=== PATIENT | female | born 1955 | race Caucasian/White ===

== ENCOUNTER 2016-05-30 05:36 | Inpatient (IN) | payer OTHER ==
--- NOTE | ~2016-05-30 | CN ---
Consultation Report [facility] [address] [place]. [address] NAME: SHANT PRUETT : 57 STATUS : ADM Jennifer PAT#: [id number] AGE: 60 ADM/REG DATE : 05/30/16 MR#: [id number] REPORT SERV DATE: 05/31/16 DICTATED BY: LEANDRA NUÑEZ DATE: 05/31/16 REPORT STATUS : Draft TRANSCRIBED BY: MODVenkatesh DATE: 05/31/16 NEUROLOGY CONSULTATION DATE OF CONSULTATION: 05/31/2016 REASON FOR CONSULTATION: Reported right hemiparesis and dysarthria. HOSPITALIST: Gold Armstrong Jr, MD. HISTORY OF PRESENT ILLNESS: The patient is a 60-year-old female, who states that four or five days ago, she had a sudden onset of right hemiparesis with dysarthria. She does not remember the situation and she does not remember exactly how her symptoms began, but she remembers feeling numbness, pain, and weakness on the entire right side of her body. She feels like, she was just "cut in half". She has never experienced these type of symptoms before. Along with the numbness, pain, and weakness, she has had imbalance. She finds it difficult to walk. She also has had some slurred speech. She denies any aphasia, visual changes, or bowel and bladder abnormalities. The patient also denies having any recent upper respiratory infection or urinary tract infection. The patient was hoping that her symptoms would resolve, but since they did not she decided to come to the emergency department for further evaluation and treatment. PAST MEDICAL HISTORY: Bipolar disorder with anxiety and depression, fibromyalgia, chronic Crohn's disease, left eye vitrectomy and lens implantation, rheumatoid arthritis, esophageal stricture, colonic polyps, MRSA, cystitis, obstructive sleep apnea (does not wear CPAP), esophagitis, gastroparesis, uveitis, peptic ulcer disease, and cigarette abuse, restless legs syndrome. PAST SURGICAL HISTORY: Small bowel resection, partial colectomy, C-spine surgery, sinus surgery, and cholecystectomy. HOME MEDICATIONS: Consists of Requip 4 mg at bedtime, Risperdal 3 mg at bedtime, Lamictal 200 mg at bedtime, Pepcid 20 mg at bedtime, Protonix 40 mg daily, Neurontin 400 mg four times a day, Mycostatin cream applied b.i.d., [place] 10/325 mg one tablet four times a day p.r.n., Xanax 1 mg four times a day p.r.n., Florinef 0.1 mg b.i.d., and I think she is on Remicade. ALLERGIES: DROPERIDOL, MORPHINE, SOLU-MEDROL, PHENERGAN, AND DEMEROL. SOCIAL HISTORY: The patient is never . She has no children. She lives with her sister on [facility]. She works for [employer]. She smokes one pack per day. Denies use of alcohol or illicits. FAMILY HISTORY: Her mother from complications of diabetes. Her father from lung Consultation Report [address] [place]. [address] NAME: SHANT PRUETT : 57 STATUS : ADM Jennifer PAT#: [id number] AGE: 60 ADM/REG DATE : 05/30/16 MR#: [id number] REPORT SERV DATE: 05/31/16 DICTATED BY: LEANDRA NUÑEZ DATE: 05/31/16 REPORT STATUS : Draft TRANSCRIBED BY: SHANAE DATE: 05/31/16 cancer. She has one sister who has rheumatoid arthritis. REVIEW OF SYSTEMS: For pertinent positives, please refer to HPI. PHYSICAL EXAMINATION: GENERAL: The patient is a 60-year-old female, who is afebrile. VITAL SIGNS: Heart rate 86, respiratory rate 15, O2 sats on room air is 96%, blood pressure 140/68. NEURO: The patient is alert. She is oriented x4. She appears to be in moderate discomfort, is tearful, will follow two and three step commands. No obvious cranial nerve deficits. Right eye is injected. There is some matting and tearing from that eye. EOMs are intact. Pupils are 3 mm. PERRLA. Vision via confrontation full in both carpenter. Visual acuity, unable to measure in the right eye due to "blurring". Can move all extremities x4. No ataxia with [id number] or [id number]. Pronator drift on the right. Upper extremity strength is 5/5 in the left and 4/5 on the right with give-way weakness. Upper DTRs 1+ bilaterally. Reported diminished sensation on the right side compared to the left on the face, the upper extremities, and lower extremities. Lower extremities, strength is 5/5 on the left and 4/5 on the right with give-way weakness and positive Borjas sign. DTRs are 2+ bilaterally in the lower extremities. Plantar reflexes silent. The patient can get up out of the bed. Gait is very slow. No spasticity noted. No imbalance. Unable to tandem. Romberg is negative. LABORATORY DATA: CBC is normal. BMP shows a potassium of 3.6, glucose 166, sedimentation rate 28, C-reactive protein, 9.6, procalcitonin is negative. TSH 1.98. Chest x-ray, no acute changes. CT of the brain, no acute changes. Positive demyelinating process. MRI of the brain, no acute changes. There is either ischemia versus demyelinating disease. ASSESSMENT/PLAN: 1. Right-sided hemiparesis, etiology unknown. At this point to rule out demyelinating disease, the patient will undergo an MRI of the brain and C-spine with gadolinium. If this looks suspicious for a demyelinating process, the patient may go for a lumbar puncture looking for oligoclonal banding. At this point, there is no evidence for acute stroke. There is a possibility of drug-seeking behavior since the patient does have give-way weakness and is asking for stronger pain medications at the end of the examination. 2. Crohn's disease. 3. Rheumatoid arthritis. 4. Bipolar illness. 5. Dysautonomia versus side effect of a typical antipsychotics. Thank you again for including us in consultation. We will continue to follow with you. Consultation Report [address] [place]. [address] NAME: SHANT PRUETT : 57 STATUS : ADM Jennifer PAT#: [id number] AGE: 60 ADM/REG DATE : 05/30/16 MR#: [id number] REPORT SERV DATE: 05/31/16 DICTATED BY: LEANDRA NUÑEZ DATE: 05/31/16 REPORT STATUS : Draft TRANSCRIBED BY: SHANAE DATE: 05/31/16 JULIANNE/SHANAE PARIS Olsen / [id number] CC: Gold Armstrong Jr, MD William Cornwell, M.D.
--- NOTE | ~2016-05-30 | DS ---
Discharge Summary [facility] [address] [facility] [address] [place]. [address] NAME: SHANT VAUGHAN : 57 STATUS : DIS IN PAT#: [id number] AGE: 60 ADM/REG DATE : 05/30/16 MR#: [id number] REPORT SERV DATE: 06/04/16 DICTATED BY: DAMIÁN HANLEY DATE: 06/03/16 REPORT STATUS : Draft TRANSCRIBED BY: MODL DATE: 06/03/16 ADMISSION DATE: 05/30/2016 DISCHARGE DATE: 06/03/2016 REASON FOR ADMISSION: Hypotension, orthostasis. HISTORY OF PRESENT ILLNESS: Please refer Dr. Lauri Henderson's history and physical dated 05/30/2016 for complete details regarding the patient's admission. In brief, the patient was admitted to the Hospitalist Service for postural hypotension. HOSPITAL COURSE: Several issues were addressed: 1. Syncope secondary to orthostasis and hypotension. The patient was admitted to the hospitalist service, where she was admitted with IV fluids. She had a significant drop in her blood pressure during orthostatics. Cortisol level was checked and was 0.7. She was then started on Florinef and did not have any other issues. [facility] was following for her syncope, recommended getting an echocardiogram, which was performed and it was unremarkable. 2. Right eye conjunctivitis. The patient was started on gentamicin and had significant injected conjunctivae. She stated that the gentamicin is making it worse. I discontinued the gentamicin and started her on Cyclogyl and Vigamox q.i.d., and had markedly improved her conjunctivitis, it is now resolving. 3. Bipolar, stable. 4. Generalized anxiety disorder, stable on 0.5 mg p.r.n. Xanax. Of note, her dose was decreased from 2 mg to 0.5, and she has been doing fine on 0.5 in the hospital. 5. Chronic pain syndrome, which was stable on [place]. 6. Right-sided hemiparesis. Neurology was consulted. They had recommended getting an MRI of her brain and MRI of her C-spine. MRI of the brain showed focal regions of gliosis in the white matter of both hemispheres primarily in the periventricular location may be related to chronic ischemic changes; however, the differential would include demyelinating disease. No acute infarct or hemorrhage. MRI with and without contrast of the brain showed indeterminate pattern of multifocal deep white matter hyperintensity foci in T2 and FLAIR. MRI of the cervical spine with and without contrast showed no evidence of demyelinating plaques involving the cervical or upper thoracic spine cord through T4. There is moderate to severe degenerative disease, C4 through C7. There is moderate to severe focal spinal stenosis C4 through C5, C6 through C7. Moderate diffuse disk osteophyte formation. Given the acute findings per MRI scan, Neurology was concerned for possible MS. She underwent a lumbar puncture by Interventional Radiology, which showed a glucose CSF of 137 and a protein CSF of 60. Dr. Lehman commented that possible concern for multiple sclerosis. Physical Therapy had evaluated the patient, recommended home PT. The patient reached maximal hospitalization, will be discharged today in stable condition. DISCHARGE DIAGNOSES: 1. Syncope secondary to orthostasis secondary to possible renal insufficiency, now resolved on Florinef. 2. Bipolar disease, stable. Discharge Summary [address] [address] NAME: SHANT VAUGHAN : 57 STATUS : DIS IN PAT#: [id number] AGE: 60 ADM/REG DATE : 05/30/16 MR#: [id number] REPORT SERV DATE: 06/04/16 DICTATED BY: DAMIÁN HANLEY DATE: 06/03/16 REPORT STATUS : Draft TRANSCRIBED BY: SHANAE DATE: 06/03/16 3. Bacterial conjunctivitis in the right eye, now resolving. 4. History of Crohn's disease. 5. Generalized anxiety disorder. 6. Chronic pain syndrome, dependent on [place] and on benzos. 7. Right-sided hemiparesis concerning for possible multiple sclerosis. The patient underwent three days of Solu-Medrol without any complications. 8. History of rheumatoid arthritis. PROCEDURES: Include consultation with Dr. De of Neurology, Dr. Mario Fritz of Cardiology. Echocardiogram, lumbar puncture, MRI of her cervical spine, MRI of her brain with and without contrast, carotid Doppler, chest x-ray, and CT scan of the brain without contrast. DISCHARGE MEDICATIONS: Include Cyclogyl 1% one drop in her eye daily for seven days, Os-Jarad daily, multivitamin daily, Pepcid 20 mg daily, Florinef 0.1 mg twice a day, folic acid 1 mg daily, gabapentin 400 mg four times a day, Lamictal 200 mg at bedtime, Vigamox 0.5% one drop in her eye four times a day, Protonix 40 mg twice a day, potassium chloride 10 mEq daily, Risperdal 3 mg at bedtime, Requip 2 mg daily, Requip 4 mg at bedtime, Tofranil 50 mg daily and 100 mg at bedtime, Xanax 0.5 mg twice a day #20 given, [place] 10/325 mg every 12 hours p.r.n. pain #20 given, Remicade every 30 days, Zofran p.r.n. pain. FOLLOWUP: The patient will follow up with [facility] in four weeks to evaluate for demyelinating disease. We will arrange for home PT and she will need to follow up with Dr. Hollingsworth for her conjunctivitis. This is Dr. Damián Hanley spending over 30 minutes on discharge planning and coordination of care on Ms. Vaughan. ELDER/SHANAE Damián Hanley MD / [id number] CC: Gold Armstrong Jr, MD William Cornwell, M.D.
--- NOTE | ~2016-05-30 | HP ---
History And Physical [address] [place]. [address] NAME: SHANT PRUETT : 57 STATUS : ADM Jennifer PAT#: [id number] AGE: 60 ADM/REG DATE : 05/30/16 MR#: [id number] REPORT SERV DATE: 05/30/16 DICTATED BY: RICKIE MERAZ DATE: 05/30/16 REPORT STATUS : Draft TRANSCRIBED BY: MODVenkatesh DATE: 05/30/16 DATE OF ADMISSION: 05/30/2016 REASON FOR ADMISSION: Postural hypotension and weakness of the right side. HISTORY OF PRESENT ILLNESS: This is a 60-year-old white female with bipolar disorder, fibromyalgia, and chronic Crohn's disease. She received her last dose of Remicade on 05/27/2016. She complains of weakness on the right arm and leg for the last three days. She said she has numbness and tingling on that side as well. She has dysesthesia. Her right eye has become reddened. Dr. Hollingsworth had done a vitrectomy and lens implantation, though her eye rejected the lens. She has no lens that are planted to do this, and this happens episodically. She is in the emergency room, was seen by Dr. De Santiago, was found to have postural hypotension with the blood pressure dropping from 140, down to 89 systolic. She is on multiple medications. They are being identified now that contributed to this as well. She is reluctant to give me her psychiatric history. She has gone to [facility] about the last time she was seen about five years ago, but she is on substantial antipsychotic medication. She is also on narcotic medication, does not see a pain management doctor. All of her medications come through her primary care physician, Dr. Gold Quintanilla in [place]. She lives on [facility]. PAST MEDICAL HISTORY: She was last discharged from the hospital here on 09/15/2015 with right eye conjunctivitis, uncontrolled pain, bipolar disorder. She has presented to the hospital here and been treated for diarrhea, nausea, and vomiting in 09/2014. She had pain in the right eye and redness in the right eye in 09/2015. She had a history of Crohn's disease, possibly rheumatoid arthritis, and was seen for COPD, elevated cholesterol, bipolar disorder with anxiety and depression, esophageal strictures, colonic polyps, history of MRSA, history of cystitis, obstructive sleep apnea not on CPAP, monilial esophagitis, gastroparesis, uveitis, and peptic ulcer disease. She has had a small bowel resection for Crohn' disease in the past, partial colectomy, cervical spine surgery, sinus surgery, and cholecystectomy remotely. ALLERGIES: SHE IS ALLERGIC TO SULFA, PENTAZOCINE, DEMEROL, MORPHINE, SOLU-MEDROL, MEPERIDINE, AND PROMETHAZINE. HOME MEDICATIONS: Include the following: Alprazolam 2 mg p.o. q.i.d.; calcium with vitamin D 500 mg 1 p.o. daily; famotidine 20 mg p.o. at bedtime; folic acid 1 mg p.o. daily; gabapentin 400 mg 4 times a day; and [place] 10/325 one p.o. q.i.d. scheduled. She is also on imipramine 50 mg in the morning and 100 mg at bedtime; Remicade every 30 days which she took History And Physical [address] [address] NAME: SHANT PRUETT : 57 STATUS : ADM Jennifer PAT#: [id number] AGE: 60 ADM/REG DATE : 05/30/16 MR#: [id number] REPORT SERV DATE: 05/30/16 DICTATED BY: RICKIE MERAZ DATE: 05/30/16 REPORT STATUS : Draft TRANSCRIBED BY: SHANAE DATE: 05/30/16 on 05/27/2016; Lamictal 200 mg at bedtime; Centrum Silver 1 a day; ondansetron 4 mg twice a day p.r.n. nausea; Protonix 40 mg p.o. b.i.d.; potassium chloride 10 mEq p.o. daily; Risperdal 3 mg at bedtime; and ropinirole 2 mg p.o. in the morning and 4 mg at 4 p.m. and 4 mg at bedtime. SOCIAL HISTORY: She lives on [address] with a sister. She never . 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 She claims never to have been admitted to the psychiatric hospital. She does not attend sikh. She worked at [employer] for 2.5 years. FAMILY HISTORY: She has two brothers and two sisters. Hypertension, diabetes, strokes, and cancer run in the family as well as her mother and father. REVIEW OF SYSTEMS: She had a fainting spell about three to four weeks ago. She has had weakness in her right arm and leg for the last three days, also numbness and tingling. Dr. De Santiago gave her Dilaudid which she says helped her pain a lot, and she wants more of it; however, she is awakened from sleep for examination. Dr. De Santiago explained to me that the CT scan of her brain had deep white matter disease and MRI was recommended. She does have a history of a right Port-A-Cath having been placed for portal venous access in the past. She has been hospitalized for the Crohn's disease on multiple occasions, and used all of her veins. She says she does not want to be resuscitated at the event of cardiac arrest if a natural were to ensue. She has had no chest pain, shortness of breath, fever, chills, night sweats, nausea, vomiting, diarrhea, fits, seizures, or convulsions. She does feel somewhat weak when she stands up but it is not a primary complaint that brought her to the emergency room. She came in for the right-sided tingling nausea. The pain on her right side was chest pain, but she actually had pain from her face through her chest, upper arm right side, right leg down to her foot. This went on for three days duration. Dr. Quintanilla is not aware of it. She came in at about 5:30 this morning. The remainder of the review of systems is noncontributory and negative. PHYSICAL EXAMINATION: GENERAL: She is an older-appearing white female, who appears older than age 60, in no acute distress. She is awakened from sleep by touch and not by voice. HEENT: She has redness in the periorbital area. Also, the right cheilitis at the left corner of her mouth. The sclerae are red. Conjunctivae pink. She has periorbital swelling on the right side as well. Left side is clear. She has slight exophthalmos. NECK: No bruit without any JVD. CHEST: Clear to A and P. HEART: Regular S1, S2 without murmur, gallop, or click. BREASTS: Grossly without mass. ABDOMEN: Soft and nontender. Bowel sounds positive. Flat. History And Physical [address] [address] NAME: SHANT PRUETT : 57 STATUS : ADM Jennifer PAT#: [id number] AGE: 60 ADM/REG DATE : 05/30/16 MR#: [id number] REPORT SERV DATE: 05/30/16 DICTATED BY: RICKIE MERAZ DATE: 05/30/16 REPORT STATUS : Draft TRANSCRIBED BY: SHANAE DATE: 05/30/16 EXTREMITIES: Have no edema. Distal pulses are intact in the dorsalis pedis and posterior tibial. NEUROLOGIC: She does not move to plantar stimulation. I do get DTRs in the knees bilaterally. I do not elicit ankle jerk bilaterally. Her python consultant is equal and symmetric. She raises the right leg only slightly with some difficulty and has give-away tendency. There is a python consultant with the right side. Raven's reflex is negative. Sensory and motor grossly intact bilaterally. SKIN: There is some redness at the corners of the mouth around the left eye and some slight ecchymosis on the hands. Port-A-Cath is in the right upper chest accessed. LYMPHATICS: There is no adenopathy palpable. LABORATORY DATA: Chest x-ray portable showed no acute cardiopulmonary disease. CT scan of her brain was the main concern that showed a bihemispheric deep white matter which are old and unchanged and stable since September of 2014. There may be an ischemic change or demyelinating process cannot be excluded according to Dr. Lehman and he recommends an MRI scan of the brain. Hemoglobin 10.7, hematocrit 32.5, white count 10.5, platelets 230,000. The INR is 1.0. CMP shows sodium 134, potassium 3.9, creatinine 1.2, BUN 13. Glucose 127. Albumin 2.9, alkaline phosphatase 141. Troponin less than 0.02. The glucose was 140. EKG shows normal sinus rhythm. Incomplete right bundle branch block. Borderline EKG. ASSESSMENT: 1. Postural hypotension. Blood pressure fell from 137 to 89. Her other vital signs are reviewed and show a presenting blood pressure of 124. 2. Blood pressure consistently has fallen here on multiple checks, according to Dr. De Santiago none are recorded in the chart. However her heart rate remains in the 70s with oxygen saturation 90s, 93 to 98, respiratory rate 16. She is afebrile to touch. 3. Because of postural hypotension, we are going to give her a liter of IV fluid. She is on multiple medications that drop the blood pressure. I will make the hydrocodone p.r.n. I will drop the alprazolam to 2 mg. I will stop the imipramine because of problem with the postural hypotension though she does have significant depression. 4. Bipolar depressive disorder with somatization. The patient is wanting more narcotics though she is awaken from sleep. It does not appear to be in any distress. I will not give her another dose of IV Dilaudid but restart her home medication with the Lortab but do it in a p.r.n. fashion. 5. Conjunctivitis right eye socket. She is followed by Dr. Hollingsworth. 6. History of cataract and vitrectomy by Dr. Hollingsworth. 7. History of Crohn's disease. 8. Anxiety with bad nerves. 9. Panic attacks. 10.Right-sided numbness and tingling and weakness. There appears to be some lack of concentration and lack of effort on the neurologic exam. I am going to go ahead and check an MRI scan of her brain as was recommended by Dr. Lehman on the radiology report and see if there is evidence of an acute infarct on the right side. She may be having some thalamic pain, perhaps some demyelinating problem that may be anselmo to MS or as a secondary effect from the use of the Remicade over the last 10 years. She does have dysesthesias of the right side with pain and numbness for the last three days. 11.History of fibromyalgia. History And Physical [address] [place]. [address] NAME: SHANT PRUETT : 57 STATUS : ADM Jennifer PAT#: [id number] AGE: 60 ADM/REG DATE : 05/30/16 MR#: [id number] REPORT SERV DATE: 05/30/16 DICTATED BY: RICKIE MERAZ DATE: 05/30/16 REPORT STATUS : Draft TRANSCRIBED BY: MODVenkatesh DATE: 05/30/16 12.Cigarette abuse, 1 pack per day smoker. Likely COPD associated with this. We will add patch. 13.History of 5 colonic polyps with most recent colonoscopy Dr. Mills. 14.Drug-seeking behavior. 15.Conjunctivitis. We will add erythromycin ointment. 16.The patient has bipolar affective disorder, seen at [facility] in the past [address] Quintanilla will continue to refill her antipsychotics and antidepressants and mood stabilizing agents. She denies any psychiatric hospitalization. She has not seen a psychiatrist in 5 years. PLAN: Try to withhold medications that cause a postural hypotension including the narcotic medication. She does display drug-seeking behavior asking for the Dilaudid when awakened from sleep though I believe that the oral hydrocodone is sufficient for now. She does have the pain and numbness and tingling on the right side. If the MRI scan of the brain shows or justifies a question that the neurologist may answer, will consult Neurology otherwise we will observe 24 hours. Check in the blood pressure supine and standing and see how the right side improves over time. DB/MODL Rickie Meraz M.D. / [id number] CC: Gold Armstrong Jr, MD Michael Goodman, M.D. Gold Quintanilla M.D.
--- NOTE | ~2016-05-30 | CN ---
Consultation Report [facility] [address] [place]. [address] NAME: SHANT VAUGHAN : 57 STATUS : ADM Jennifer PAT#: [id number] AGE: 60 ADM/REG DATE : 05/30/16 MR#: [id number] REPORT SERV DATE: 06/01/16 DICTATED BY: SUNDEEP DUTTA DATE: 05/31/16 REPORT STATUS : Draft TRANSCRIBED BY: MODVenkatesh DATE: 05/31/16 CARDIOLOGY CONSULTATION REGARDING SYNCOPE. DATE OF CONSULTATION: HISTORY OF PRESENT ILLNESS: Ms. Vaughan is a pleasant 60-year-old woman with a history of bipolar disorder treated with multiple psychiatric medications. She has a longstanding history of syncopal events which in the past have been related to orthostasis. She presented with complaints of right-sided pain throughout her body, but also continued episodes of syncope. These episodes occurred while she is standing. She feels her heart racing during these events. She had a recent Holter monitor read by Dr. Zeenat Sanchez, which was normal. She denies any chest pain or chest discomfort. Denies any congestive heart failure symptoms. PAST MEDICAL HISTORY: Notable for bipolar disorder. MEDICATIONS: The patient takes Risperdal, Tofranil, Xanax. She also takes narcotics for chronic pain with hydrocodone/APAP. FAMILY HISTORY: Negative for premature coronary artery disease or sudden cardiac . SOCIAL HISTORY: Positive for tobacco. Negative for alcohol. REVIEW OF SYSTEMS: As noted above. All other systems reviewed negative. PHYSICAL EXAMINATION: VITAL SIGNS: Blood pressure 130/76, pulse of 82, respirations 16, afebrile. Of note, the patient was orthostatic in the emergency room, but is currently not orthostatic after addition of fludrocortisone and adjustment of her medications. GENERAL: Well developed, well nourished. HEENT: No icterus. Good dentition. NECK: Supple. No masses or thyromegaly. LUNGS: Breathing comfortably. No rales or wheezes. COR: Normal S1, S2. No S3 or S4. No murmurs, clicks, rubs. No JVD. ABD: Soft, nondistended, and nontender. No hepatosplenomegaly. EXT: No clubbing, cyanosis or edema. Peripheral pulses 2+/=bilaterally. SKIN: Warm and dry. No visible lesions. : Chest wall without deformity. No obvious clavicular fractures. NEURO/PSYCH: Oriented X3. No anxiety or depression. DIAGNOSTIC DATA: Her EKG shows sinus rhythm with normal [place]-QRS intervals. The corrected QT interval is 460 milliseconds. Telemetry has not shown any arrhythmias. Consultation Report [facility] [address] [place]. [address] NAME: SHANT VAUGHAN : 57 STATUS : ADM Jennifer PAT#: [id number] AGE: 60 ADM/REG DATE : 05/30/16 MR#: [id number] REPORT SERV DATE: 06/01/16 DICTATED BY: SUNDEEP DUTTA DATE: 05/31/16 REPORT STATUS : Draft TRANSCRIBED BY: SHANAE DATE: 05/31/16 LABORATORY VALUES: Sodium 142, potassium 3.6, BUN of 12 with a creatinine of 1.1. White blood cell count of 8.2, hematocrit of 32, and platelet count of 207. TSH is within normal limits. IMPRESSION: The patient with reported episodes of syncope. These occur while she is standing. She complains of palpitations prior to the event. She was noted to have evidence of orthostasis in the emergency room. There has been adjustment in some of her psychiatric medications along with addition of fludrocortisone. Recheck of orthostatics today showed that this had resolved. At this point, it would seem that orthostasis is the most likely source of her syncope. I cannot rule out arrhythmia, but she wore a recent Holter monitor which was unremarkable. Telemetry here has been unremarkable and her EKG is largely unremarkable as well. An echocardiogram has been ordered, but has not yet been performed. I would plan to treat the orthostasis with fludrocortisone as has been prescribed here in the hospital. I would recommend follow up with me at the [facility]. CATY/SHANAE Sundeep Dutta M.D. / [id number] CC: Gold Armstrong Jr, MD William Cornwell, M.D.
[~2016-05-30 05:36] MED LIST: ATIVAN2 MG PO; B12 INJ; BENTYL20 PO; ESTRACE0.5 MG PO; ESTRACE1 MG PO; FISH-EPA1000 MG PO; HUMIR1 SC; KLOR-CON 1010 MEQ PO; KLOR-CON M2020 MEQ PO; LAMICTAL10 PO; LAMICTAL200 MG PO; LINZESS PO; LIOR10 PO; NEUR400 PO; NEXIUM40 PO; NORCO1 TA1 PO; NORCO1 TAB PO; PEP20 PO; PERCOCET1 TA4 PO; PRAVACHOL40 MG PO; PREDMILDOP OPH; PREMPRO1 TA2 PO; PROAM25 PO; PROTONIX PO; REMICADE IV; REQUIP2 PO; REQUIP5 MG PO; RESTORIL30 MG PO; RISP3 PO; T3 PO; THERGRANM PO; TOF25 PO; TOF50 PO; TOFRA100PM PO; VITC500 PO; XANAX2 MG PO; ZANTAC150 MG PO; ZOFRAN ODT4 MG PO; ZOFRAN4 PO
[2016-05-30 05:51] LABS: BASOPHILS 0.3 %; BASOPHILS ABSOLUTE 0.03 10/3/uL (0.0-0.16); EOSINOPHILS 3.1 %; EOSINOPHILS ABSOLUTE 0.32 10/3/uL (0.0-0.53); HEMOGLOBIN 10.7 g/dL (12.0-16.0); IMMATURE GRANULOCYTES 0.2 %; IMMATURE GRANULOCYTES ABSOLUTE 0.02 10/3/uL (0.0-0.11); LYMPHOCYTES 29.8 %; LYMPHOCYTES ABSOLUTE 3.12 10/3/uL (0.67-4.30); MEAN CORPUS HGB CONC 32.9 g/dL (32.0-36.0); MEAN CORPUSCULAR HEMOGLOB 28.5 pg (26.0-34.0); MEAN CORPUSCULAR VOLUME 86.4 fL (80-100); MEAN PLATELET VOLUME 9.4 fL (9.2-13.0); MONOCYTES 4.7 %; MONOCYTES ABSOLUTE 0.49 10/3/uL (0.21-1.20); NEUTROPHILS 61.9 %; PLATELET COUNT 230 10/3/uL (150-400); RBC DISTRIBUTION WIDTH 14.4 % (12.0-16.0); RED CELL COUNT 3.76 10/6/uL (4.0-5.6); WHITE BLOOD CELLS 10.5 10/3/uL (4.5-10.5)
[2016-05-30 05:56] LABS: HEMATOCRIT 32.5 % (36.0-48.0); MANUAL DIFF NO %
[2016-05-30 06:11] LABS: ALBUMIN 2.9 G/DL (3.5-5.0); CALCIUM, SERUM 8.6 MG/DL (8.5-10.4); CHLORIDE, SERUM 95 MMOL/L (96-112); CO2 (CARBON DIOXIDE) 27 MMOL/L (24-34); CREATININE 1.02 MG/DL (0.55-1.02); GFR AFRICAN AMERICAN 70 ML/MIN (>=60); GFR NON AFRICAN AMERICAN 60 ML/MIN (>=60); GLUCOSE, SERUM 127 MG/DL (60-99); POTASSIUM, SERUM 3.9 MMOL/L (3.5-5.3); SGOT(AST) 8 U/L (5-40); SGPT(ALT) 23 U/L (5-65); SODIUM, SERUM 134 MMOL/L (135-148); TOTAL BILIRUBIN 0.2 MG/DL (0-1.2); TOTAL PROTEIN 6.7 G/DL (6.0-8.5); TROPONIN I <0.02 NG/ML (<0.05)
[2016-05-30 06:12] LABS: A/G RATIO 0.8 (0.7-1.9); ALKALINE PHOSPHATASE 141 U/L (45-117); BUN (BLOOD UREA NITROGEN) 13 MG/DL (6-23); GLOBULIN 3.8 G/DL (2.5-4.1)
[2016-05-30 06:31] LABS: PARTIAL THROMBO TIME 33.5 SEC (22.5-37.2); PROTIME (NOT ORD) 12.7 SEC (12.0-14.5)
[2016-05-30] MEDS ORDERED: LAMICTAL200 MG PO (07:32)
[2016-05-30] MEDS ORDERED: TOF50 PO ×2 (07:32)
[2016-05-30] MEDS ORDERED: RISP3 PO (07:33)
[2016-05-30] MEDS ORDERED: NORCO1 TAB PO (07:33)
[2016-05-30] MEDS ORDERED: KDUR10 PO (07:33)
[2016-05-30] MEDS ORDERED: X5 PO (07:33)
[2016-05-30] MEDS ORDERED: FOLIC PO (07:34)
[2016-05-30] MEDS ORDERED: OS500+D PO (07:35)
[2016-05-30] MEDS ORDERED: NEUR600 PO (07:35)
[2016-05-30] MEDS ORDERED: REMICADE IV (07:36)
[2016-05-30] MEDS ORDERED: CENTRUM PO (07:36)
[2016-05-30] MEDS ORDERED: PEP20 PO (07:45)
[2016-05-30] MEDS ORDERED: PROTONIX PO (07:45)
[2016-05-30] MEDS ORDERED: REQUIP2 PO (07:45)
[2016-05-30] MEDS ORDERED: REQUIP4 MG PO (07:45)
[2016-05-30] MEDS ORDERED: ZOFRAN4 PO (07:46)
[2016-05-30 12:25] LABS: CPK 54 U/L (0-200)
[2016-05-30 15:17] LABS: PROCALCITONIN <0.05 ng/mL (<0.5)
[2016-05-30 15:42] LABS: C-REACTIVE PROTEIN 9.6 MG/L (<8.0)
[2016-05-31 03:48] LABS: BASOPHILS 0.2 %; BASOPHILS ABSOLUTE 0.02 10/3/uL (0.0-0.16); EOSINOPHILS 2.9 %; EOSINOPHILS ABSOLUTE 0.24 10/3/uL (0.0-0.53); HEMATOCRIT 32.2 % (36.0-48.0); HEMOGLOBIN 10.5 g/dL (12.0-16.0); IMMATURE GRANULOCYTES 0.2 %; IMMATURE GRANULOCYTES ABSOLUTE 0.02 10/3/uL (0.0-0.11); LYMPHOCYTES 34.7 %; LYMPHOCYTES ABSOLUTE 2.83 10/3/uL (0.67-4.30); MEAN CORPUS HGB CONC 32.6 g/dL (32.0-36.0); MONOCYTES 3.9 %; MONOCYTES ABSOLUTE 0.32 10/3/uL (0.21-1.20); NEUTROPHILS 58.1 %; NEUTROPHILS ABSOLUTE 4.72 10/3/uL (2.02-8.40); PLATELET COUNT 207 10/3/uL (150-400); RBC DISTRIBUTION WIDTH 14.6 % (12.0-16.0); RED CELL COUNT 3.62 10/6/uL (4.0-5.6); WHITE BLOOD CELLS 8.2 10/3/uL (4.5-10.5)
[2016-05-31 03:49] LABS: MANUAL DIFF NO %
[2016-05-31 03:58] LABS: A/G RATIO 0.8 (0.7-1.9); ALBUMIN 2.7 G/DL (3.5-5.0); ALKALINE PHOSPHATASE 137 U/L (45-117); BUN (BLOOD UREA NITROGEN) 12 MG/DL (6-23); CO2 (CARBON DIOXIDE) 28 MMOL/L (24-34); CREATININE 1.14 MG/DL (0.55-1.02); GFR AFRICAN AMERICAN 61 ML/MIN (>=60); GFR NON AFRICAN AMERICAN 53 ML/MIN (>=60); GLOBULIN 3.4 G/DL (2.5-4.1); POTASSIUM, SERUM 3.6 MMOL/L (3.5-5.3); SGOT(AST) 10 U/L (5-40); SGPT(ALT) 18 U/L (5-65); TOTAL BILIRUBIN 0.1 MG/DL (0-1.2); TOTAL PROTEIN 6.1 G/DL (6.0-8.5)
[2016-05-31 04:00] LABS: CHLORIDE, SERUM 105 MMOL/L (96-112); GLUCOSE, SERUM 166 MG/DL (60-99); SODIUM, SERUM 142 MMOL/L (135-148)
[2016-06-01 06:27] LABS: CHOL/HDL RATIO(NOT ORDER) 5.6 (0-5)
[2016-06-01 06:31] LABS: FOLATE 8.9 NG/ML (>5.2)
[2016-06-03 09:15] LABS: CSF APPEARANCE (NOT ORD) CLEAR (CLEAR); CSF COLOR (NOT ORD) COLORLESS (COLORLESS); CSF WBC (NOT ORD) 5 /uL (0-10); CSF XANTHROCHROMIA NEG (NEG)
[2016-06-03 10:15] LABS: CSF BASO 0 % (NO REF RANGE); CSF EOS 0 % (0-1); CSF LYMPH (NOT ORD) 58 % (28-96); CSF MONO 42 % (16-56); CSF SEGS (NOT ORD) 0 % (0-7)
[2016-06-03 10:31] LABS: CSF RBC (NOT ORD) 5 MM3 (NO REFERENCE)
[2016-06-03] MEDS ORDERED: CYCLOGYL OPH 1%2 ML OPH (16:26)
[2016-06-03] MEDS ORDERED: FLORINEF0.1 MG PO (16:30)
[2016-06-03] MEDS ORDERED: VIGAMOX OPH (16:34)
[2016-06-06 08:38] LABS: ALBUMIN INDEX 8.4 ratio (0.0-9.0); CSF IGG SYNTHESIS RATE 1.1 mg/d (0.0-8.0); CSF IGG/ALBUMIN RATIO 0.15 ratio (0.09-0.25); CSF OLIGOCLONAL BANDS Negative (NEG); CSF OLIGOCLONAL BANDS NUMBER 0 Bands (0-1); IGG INDEX 0.55 ratio (0.28-0.66); IMMUNOGLOBULIN G, SERUM 1110 mg/dL (768-1632)
== END 2016-06-03 19:12 | disposition home health service (06) | DRG 60 ==
LOC: ER 05:36 → CDU1 10:13 → 1SO 06-01 17:19
PROVIDERS: Internal Medicine; Psychiatry & Neurology Neurology; Specialist
PROC: 009U3ZZ Drainage of Spinal Canal, Percutaneous Approach (ICD-10-PCS; principal; 2016-06-03)
DX: G35 Multiple sclerosis (principal); J44.9 Chronic obstructive pulmonary disease, unspecified; G81.91 Hemiplegia, unspecified affecting right dominant side; Z66 Do not resuscitate; I95.1 Orthostatic hypotension; F41.1 Generalized anxiety disorder; N28.9 Disorder of kidney and ureter, unspecified; M50.323 Other cervical disc degeneration at C6-C7 level; H10.9 Unspecified conjunctivitis; G89.4 Chronic pain syndrome; G47.33 Obstructive sleep apnea (adult) (pediatric); M06.9 Rheumatoid arthritis, unspecified; F17.210 Nicotine dependence, cigarettes, uncomplicated; M79.7 Fibromyalgia; G25.81 Restless legs syndrome; F31.9 Bipolar disorder, unspecified; Z76.5 Malingerer [conscious simulation]; Z91.19 Patient's noncompliance with other medical treatment and regimen; Z79.891 Long term (current) use of opiate analgesic; Z79.899 Other long term (current) drug therapy; Z90.49 Acquired absence of other specified parts of digestive tract; Z86.14 Personal history of Methicillin resistant Staphylococcus aureus infection; Z86.010 Personal history of colon polyps; Z87.11 Personal history of peptic ulcer disease; Z88.2 Allergy status to sulfonamides; Z88.5 Allergy status to narcotic agent; Z88.8 Allergy status to other drugs, medicaments and biological substances; Z87.19 Personal history of other diseases of the digestive system
CPT/HCPCS: 62270; 70450; 70551; 70553; 71010; 72156; 77003; 80053; 80061; 82040; 82042; 82306; 82533; 82550; 82607; 82746; 82784; 82784-59; 82945; 82947; 82962; 83036; 83873; 83916; 84145; 84157; 84443; 84484; 85025; 85610; 85652; 85730; 86140; 89051; 93005; 93306; 93880; 96374; 96375; 97162-GP; 97165-GO; 99285; A9270-GY; A9577; J1170; J2405; J2930

== ENCOUNTER 2016-06-25 02:41 | Inpatient (IN) | payer OTHER ==
--- NOTE | ~2016-06-25 | OP ---
Record Of Operation [facility] [address] [place] [address] NAME: SHANT PRUETT : 57 STATUS : ADM IN [facility]#: [id number] AGE: 60 ADM/REG DATE : 06/25/16 MR#: [id number] REPORT SERV DATE: 06/30/16 DICTATED BY: LUCRETIA MUJICA DATE: 06/30/16 REPORT STATUS : Draft TRANSCRIBED BY: MODL DATE: 06/30/16 DATE OF PROCEDURE: 06/30/2016 PREOPERATIVE DIAGNOSIS: Dysphagia. PROCEDURE: Panendoscopy. POSTOPERATIVE DIAGNOSIS: Gastric retention. PREMEDICATION: Diprivan. PROCEDURE IN DETAIL: The scope was inserted without difficulty. There was no evidence of esophageal stricture. Retroflexed view shows no other lesions. There is marked gastric retention with a large amount of retained food in the distal stomach. The duodenal bulb appears normal. IMPRESSION: Gastric retention with no evidence of obstruction. PLAN: Try oral erythromycin for prokinetic effect. MARY/SHANAE Lucretia Mujica M.D. / [id number] CC: Abraham Romero M.D.
--- NOTE | ~2016-06-25 | CN ---
Consultation Report [facility] [address] [place]. [address] NAME: SHANT PRUETT : 57 STATUS : ADM IN PAT#: [id number] AGE: 60 ADM/REG DATE : 06/25/16 MR#: [id number] REPORT SERV DATE: 06/29/16 DICTATED BY: LUCRETIA MUJICA DATE: 06/29/16 REPORT STATUS : Draft TRANSCRIBED BY: SHANAE DATE: 06/29/16 CONSULTATION DATE OF CONSULTATION: 06/29/2016 REASON FOR CONSULTATION: I am asked to see this lady with dysphagia. HISTORY OF PRESENT ILLNESS: This 60-year-old woman has had a history of esophageal strictures. She notes for the last two weeks, she has had persistent dysphagia for solids and liquids. She has had mild nausea, but no vomiting. She denies diarrhea, pain, cramps, or blood in the stools. PAST MEDICAL HISTORY: Also remarkable for Crohn disease, details unclear. She was admitted at this time with change in mental status, working diagnosis is encephalopathy. Happily, she is currently alert and oriented. REVIEW OF SYSTEMS: Otherwise negative. PHYSICAL EXAMINATION: CHEST: Clear. CARDIAC: Regular rhythm without rubs or murmurs. ABDOMEN: Soft and nontender. Bowel sounds normal. No palpable mass. IMPRESSION: Dysphagia. PLAN: Scheduled for panendoscopy and dilatation in the next 24 hours. MARY/SHANAE Lucretia Mujica M.D. / [id number] CC: Abraham Romero M.D.
--- NOTE | ~2016-06-25 | CN ---
Consultation Report [facility] [address] [place]. [address] NAME: SHANT PRUETT : 57 STATUS : ADM IN PAT#: [id number] AGE: 60 ADM/REG DATE : 06/25/16 MR#: [id number] REPORT SERV DATE: 06/25/16 DICTATED BY: DATE: REPORT STATUS : Draft TRANSCRIBED BY: MODL DATE: 06/25/16 NEUROLOGY CONSULTATION DATE OF CONSULTATION: 06/25/2016 REASON FOR CONSULT: Possible multiple sclerosis, lethargy, and weakness. HISTORY OF PRESENT ILLNESS: This is a 60-year-old female who presented to [facility] secondary to lethargy as well as loss of consciousness episodes with the patient reports at least one loss of consciousness episodes per day. The patient reports the symptom usually precedes with dizzy type of sensation followed by loss of consciousness episode of roughly a minute or so, duration of that is unknown. No reports of shaking episodes noted. The patient, since the previous hospital discharge, was also noted to have increased her home Xanax dosage back to 2 mg as needed secondary to the patient's sister reports the patient "not doing well" on lower dose of Xanax. The patient otherwise was not noted to have any focal weakness. The patient was noted to be lethargic at the time of evaluation with the patient having difficulty maintaining arousal. Otherwise, the patient has not had any neurology followup since the previous hospital discharge. No recent illness, fever, chills, nausea, vomiting, chest pain, or shortness of breath was otherwise noted. PAST MEDICAL HISTORY: The patient's past medical history is significant for bipolar disorder with anxiety as well as depression, fibromyalgia, and Crohn's disease. The patient was noted to have left eye vitrectomy, lens implantation, rheumatoid arthritis, esophageal stricture, colonic polyps, MRSA cystitis, obstructive sleep apnea not wearing CPAP, esophagitis, gastroparesis as well as uveitis, peptic ulcer disease, and restless legs syndrome. ALLERGIES: THE PATIENT WAS NOTED TO HAVE ALLERGY TO DROPERIDOL; MORPHINE; SOLU-MEDROL; PHENERGAN; AND DEMEROL. SOCIAL HISTORY: Current smoker 1 pack per day. Denies alcohol or illicit drug usage. FAMILY HISTORY: Significant for diabetes as well as lung cancer. Rheumatoid arthritis. REVIEW OF SYSTEMS: Negative except for those mentioned in the HPI. HOME MEDICATIONS: The patient's home medications consist of Xanax; calcium with vitamin D; cyclopentolate ophthalmic drops; Pepcid; Diflucan; folic acid; Neurontin; [place]; Tofranil; Remicade; Lamictal; moxifloxacin ophthalmic drop; multivitamin; Zofran; Protonix; potassium; Risperdal; Requip; and Restoril. PHYSICAL EXAMINATION: VITAL SIGNS: Since the hospital admission, the patient was noted to have vital signs with T Consultation Report [address] [place]. [address] NAME: SHANT PRUETT : 57 STATUS : ADM IN PAT#: [id number] AGE: 60 ADM/REG DATE : 06/25/16 MR#: [id number] REPORT SERV DATE: 06/25/16 DICTATED BY: DATE: REPORT STATUS : Draft TRANSCRIBED BY: MODL DATE: 06/25/16 max of 100.1, heart rate of 76 to 96, respirations of 14 to 17, and blood pressure of 99 to 114 over 48 to 61. GENERAL: The patient is well developed, well nourished, in no acute distress. CARDIOVASCULAR: Regular rate and rhythm. No carotid bruits were otherwise auscultated. PULMONARY: Clear to auscultation bilaterally. NEUROLOGICAL: Generally, the patient is obtunded, arousable with verbal and tactile stimulation. Has difficulties maintaining arousal. The patient is able to follow simple commands at the time of evaluation and difficulty following complex commands. Mild dysarthria was noted. No aphasia was appreciated. The patient was noted to be oriented to person, place, but not to year or month. She was noted to have difficulties with registration as well as recall secondary to lethargy. Cranial nerves 2 through 12. The patient was noted to have left pupil reactive to light. Right lens and pupil was difficult to assess secondary to abnormalities in the right cornea and the right lens. The patient otherwise demonstrated restricted downward gaze at the time of evaluation, but otherwise intact horizontal eye movement. Intact ervoq-yx-vmcxag response noted. The patient was noted to have symmetrical facial expression and equal and symmetrical sensation. Midline tongue. Normal palatal movement. Mild decreased hearing in bilateral ears. The patient was noted to have 4/5 bilateral upper and lower extremity strength. No ataxia was noted. Deep tendon reflex was 2+ in bilateral upper extremity and 1+ in bilateral patellar reflex. Gait was not evaluated secondary to the patient's mental status. LABORATORY STUDIES: Demonstrated sodium 141, potassium 4.0, chloride 104, bicarb of 32, BUN of 12, creatinine 0.97, glucose 117, and calcium of 8.2. White blood cell count of 9.7, hemoglobin of 8.9, hematocrit of 27.5, and platelet count of 270. Urinalysis demonstrated large leukocyte esterase and negative nitrite. At the time of evaluation, the patient was noted to have CT scan of the brain demonstrating some cortical white matter disease, but otherwise no acute process was seen. IMPRESSION: Encephalopathy with the patient's increased Xanax dosage after hospital discharge in May 2016. Concern for possible polypharmacy and toxic metabolic encephalopathy. In addition, the patient was also noted to have a low-grade fever with T- max of 100.1. We will obtain MRI of the brain and C-spine with and without contrast for evaluation given the patient's previous MRI abnormalities. We will also decrease Xanax dosage. We will obtain laboratory study. If the patient continued to be febrile with the patient noted to have unchanged mental status or worsening mental status, we will obtain lumbar puncture for evaluation. We will also consider EEG study. RECOMMENDATIONS: 1. MRI of the brain and C-spine with and without contrast. 2. Ammonia, TSH, free T4, vitamin B12, and folate level with a.m. labs. 3. Serum cortisol level with morning labs. 4. We will recommend decreasing Xanax as per hospitalist. 5. We will hold Xanax for sedation. 6. If continued to be febrile or noted to have persistently unchanged mental status, we will re-evaluate for repeat lumbar puncture. Consultation Report [facility] [address] [place]. [address] NAME: SHANT PRUETT : 57 STATUS : ADM IN [facility]#: [id number] AGE: 60 ADM/REG DATE : 06/25/16 MR#: [id number] REPORT SERV DATE: 06/25/16 DICTATED BY: DATE: REPORT STATUS : Draft TRANSCRIBED BY: MODL DATE: 06/25/16 [facility]/SHANAE Anupam De MD / [id number] CC: Abraham Romero M.D.
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
--- NOTE | ~2016-06-25 | EEG ---
Electroencephalogram [facility] [address] [place]. [address] NAME: SHANT PRUETT : 57 STATUS : ADM IN PAT#: [id number] AGE: 60 ADM/REG DATE : 06/25/16 MR#: [id number] REPORT SERV DATE: 06/26/16 DICTATED BY: DATE: REPORT STATUS : Draft TRANSCRIBED BY: MODL DATE: 06/26/16 CLINICAL INDICATION: Loss of consciousness episode, encephalopathy. DESCRIPTION: This EEG was performed using 10/20 electrode placement system. During the EEG study, symmetric background activity was noted with predominant occipital rhythm of roughly 10 to 11 hertz. Photic stimulation was performed with trace driving response. Hyperventilation was not performed secondary to the patient's underlying medical conditions and mental status. The patient achieved drowsy as well as stage I and II sleep with appropriate sleep spindles. No focal abnormalities, seizure activity, or seizure discharge was otherwise noted during the EEG study. INTERPRETATION: This EEG study obtained during awake, drowsy as well as stage I and II sleep may be considered within normal limits. No focal abnormalities, seizure activity, or seizure discharge was seen. Normal EEG does not preclude seizure diagnosis. Clinical correlation is recommended. [facility]/MODVenkatesh Anupam De MD / [id number] CC: Abraham Romero M.D.
--- NOTE | ~2016-06-25 | DS ---
Discharge Summary [place] [address] [place]. [address] NAME: SHANT PRUETT : 57 STATUS : ADM IN PAT#: [id number] AGE: 60 ADM/REG DATE : 06/25/16 MR#: [id number] REPORT SERV DATE: 07/01/16 DICTATED BY: MARSHALL PEOPLES DATE: 07/01/16 REPORT STATUS : Draft TRANSCRIBED BY: MODL DATE: 07/01/16 ADMISSION DATE: 06/25/2016 DISCHARGE DATE: 07/01/2016 FINAL HOSPITAL DIAGNOSES: Lethargy, differential with adrenal insufficiency versus polypharmacy; chronic medical problems including fibromyalgia, anxiety, chronic pain, bipolar disorder, Crohn disease, and anemia. CONSULTATIONS AND PROCEDURES: As listed in my interim summary. CURRENT PHYSICAL FINDINGS AND HISTORY OF PRESENT ILLNESS: Please see initial H and P by Dr. Henderson as well as interim summary by myself. Addendum is as follows: The patient's repeat BMP showed a sodium that was increasing to 129. She was asymptomatic, it was felt secondary to her Tegretol, and believe, it is stabilized and will continue to improve. She was seen by GI and felt not to need continued erythromycin and will follow up with them as an outpatient as well as Neurology and already has a followup appointment with her PCP, I believe, on the . Prescription is written for her today. Hydrocortisone 5 mg, two in the morning and one in the evening, 45, no refill; Restoril 15 q.h.s., #10, no refill; Lortab 5/325, #16, q.i.d. p.r.n., no refill; Xanax 1 mg, #16, q.i.d., no refill; and prescription from Dr. De for Neurontin 600 one p.o. q.6 hours 120 with refills. She will resume home medications Cyclogyl ophthalmic 1%, Os-Jarad plus D, Pepcid 20, folic acid 1, Lamictal 200, Vigamox one drop four times a day, multivitamin one per day, Protonix 40 b.i.d., potassium 10, Risperdal 3, Requip 2 mg a.m. and 4 p.m., Restoril 15, Remicade, her Tofranil, her hydrocodone 10, her Diflucan. Restoril 30 was an old dose, was not continued or changed. She will follow up with her PCP in a week for repeat BMP to assure her sodium is improved off the Tegretol and to further titrate her medicines as tolerated. May need an Endo referral. TLF/MODL Marshall Peoples M.D. / [id number] CC: Abraham Romero M.D.
--- NOTE | ~2016-06-25 | IDS ---
Interim Discharge Summary [facility] [address] [place]. [address] NAME: SHANT PRUETT : 57 STATUS : ADM IN [facility]#: [id number] AGE: 60 ADM/REG DATE : 06/25/16 MR#: [id number] REPORT SERV DATE: 07/01/16 DICTATED BY: MARSHALL PEOPLES DATE: 07/01/16 REPORT STATUS : Draft TRANSCRIBED BY: MODL DATE: 07/01/16 ADMISSION DATE: 06/25/2016 DISCHARGE DATE: CURRENT HOSPITAL DIAGNOSES: 1. Lethargy, differential including adrenal insufficiency and polypharmacy. 2. Chronic medical problems including fibromyalgia, chronic anxiety, chronic pain, bipolar disorder, Crohn's disease, and anemia. CONSULTATIONS: Dr. De, Neurology and Dr. Gallegos, GI. PROCEDURES: 1. EEG done on 06/26/2016 showing within normal limits and upper endoscopy done on 06/30/2016 showing no evidence of obstruction, gastric retention. 2. CT of the brain done on 06/25/2016 showing pathology in the deep white matter tracts and both hemispheres, stable from 2015, probably small vessel ischemic disease. MS may have a similar appearance. Please note that the patient has had workup for MS with spinal tap in May and MRI of the brain, which certainly shows images that would be compatible with a diagnosis of MS, lesional burden, cjuy-xh-geczufwd. 3. MRI of the brain done on 06/26/2016 showing white matter signal abnormalities consistent with history of MS, chronic microvascular white matter ischemic changes could also be present, similar compared to 06/01 exam. No focal areas of abnormal enhancement or restricted diffusion. Bilateral maxillary sinus mucosal thickening. No significant abnormalities otherwise. MRI of cervical spine on 06/26/2016, no acute abnormality, no change from 06/01, C3-C4 osteophytes with no cord impression or narrowing, C4-C5 osteophytes, posterior annular bulging with minimal impression on the left anterior spinal cord, minimal bilateral foraminal narrowing, C6-C7 osteophytes, posterior annular bulging, and left posterior disc protrusion with impression on the anterior spinal cord, left midline and left neuroforaminal narrowing. CURRENT PHYSICAL FINDINGS AND HPI: Please see initial dictated H and P by Dr. Henderson. In brief, the patient is a 60-year-old female, who had recently been admitted with postural hypotension and low cortisol level, returned for lethargy, confusion, incoordination, and just not feeling well. Vital signs at the time of presentation, BP was 114/57, subsequent blood pressures have been in the 120 to 130 range, temp was 100.1, but the patient has had no fever since admission. LAB WORK: Initial BMP was unremarkable. A1c was 6.3, ammonia was 17, lactate was 0.8. She had a morning cortisol of 2.0, previous noted was 0.7. She had a random cortisol of 2.7. She had a cortisol stim test showing an increase from 0.6, to 90 minute of 12.5, to a two hour of 17.3, 2.5 hour of 20.2, and maxing out at 20.5. CBC showed initial white count of 9.6 and an initial hemoglobin of 8.9, repeat of 10.7 and 32 on 06/29. Sedimentation rate was noted to elevated at 40 and 54 respectively. ACTH done at 1230 hours was low at 7. Urinalysis initially showed some leukocytosis, repeat was negative. Blood cultures were negative at four days. Urine culture showed mixed bjorn. Interim Discharge Summary [address] [address] NAME: SHANT PRUETT : 57 STATUS : ADM IN [facility]#: [id number] AGE: 60 ADM/REG DATE : 06/25/16 MR#: [id number] REPORT SERV DATE: 07/01/16 DICTATED BY: MARSHALL PEOPLES DATE: 07/01/16 REPORT STATUS : Draft TRANSCRIBED BY: SHANAE DATE: 07/01/16 HOSPITAL COURSE: The patient was admitted for above symptoms, specifically lethargy and confusion, differential was possible adrenal insufficiency or polypharmacy. Cortisol stim test was ordered with results noted above. Neurology was consulted. MRI of the brain, C- spine, orthostatic vitals, and full labs were done and her Xanax was held. I took over her care on 06/26/2016, of her UTI was treated with Rocephin 1 g x2 doses. Neurology continued to follow, ordered an EEG, and additional lab work. She was started on Tegretol 100 b.i.d. on 06/27/2016. The ACTH level and cortisol level were drawn at that time also. It was elected to initiate hydrocortisone therapy to see if this would improve her situation, this was initiated on 06/27/2016. The patient was not felt to be in any type of adrenal crisis. PT was also requested. She then complained of some dysphagia and Dr. Mills was consulted. Linzess was also given for some constipation. Blood sugars were followed on the steroids, but seldom got over 150. Neurology continued to titrate her Tegretol and we continued minimal medications as the patient's symptoms could tolerate. GI consulted and performed upper endoscopy without noting any blockage or stricture. Repeat UA was negative the following day. The patient started requesting increase in her medications, which was slowly done. Because of developing hyponatremia, Tegretol was discontinued on 06/30/2016 and Neurontin was titrated. The patient continued to improve and on 07/01/2016 was ambulatory, relatively asymptomatic, and felt stable for potential discharge, however repeat sodium is currently pending. DISPOSITION: The patient is currently maximized on medical therapy and clinically improving. PLAN: To discharge home on steroids. Follow up with her PCP as soon as sodium stability is noted. TLF/MODL Marshall Peoples M.D. / [id number] CC: Abraham Romero M.D.
[~2016-06-25 02:41] MED LIST changes: +CENTRUM PO; +CYCLOGYL OPH 1%2 ML OPH; +FLORINEF0.1 MG PO; +FOLIC PO; +KDUR10 PO; +NEUR600 PO; +OS500+D PO; +REQUIP4 MG PO; +VIGAMOX OPH; +X5 PO
[2016-06-25 04:50] LABS: BASOPHILS 0.2 %; BASOPHILS ABSOLUTE 0.02 10/3/uL (0.0-0.16); EOSINOPHILS 4.4 %; EOSINOPHILS ABSOLUTE 0.43 10/3/uL (0.0-0.53); HEMOGLOBIN 8.9 g/dL (12.0-16.0); IMMATURE GRANULOCYTES 0.3 %; IMMATURE GRANULOCYTES ABSOLUTE 0.03 10/3/uL (0.0-0.11); LYMPHOCYTES 38.9 %; LYMPHOCYTES ABSOLUTE 3.77 10/3/uL (0.67-4.30); MEAN CORPUS HGB CONC 32.4 g/dL (32.0-36.0); MEAN CORPUSCULAR HEMOGLOB 29.4 pg (26.0-34.0); MEAN CORPUSCULAR VOLUME 90.8 fL (80-100); MEAN PLATELET VOLUME 8.9 fL (9.2-13.0); MONOCYTES 7.5 %; MONOCYTES ABSOLUTE 0.73 10/3/uL (0.21-1.20); NEUTROPHILS 48.7 %; RBC DISTRIBUTION WIDTH 15.3 % (12.0-16.0); RED CELL COUNT 3.03 10/6/uL (4.0-5.6); WHITE BLOOD CELLS 9.7 10/3/uL (4.5-10.5)
[2016-06-25 04:52] LABS: ER CBC TAT 0 Hrs 07 MinsNP; HEMATOCRIT 27.5 % (36.0-48.0); MANUAL DIFF NO %; PLATELET COUNT 270 10/3/uL (150-400)
[2016-06-25 05:02] LABS: PARTIAL THROMBO TIME 33.4 SEC (22.5-37.2); PROTIME (NOT ORD) 13.3 SEC (12.0-14.5)
[2016-06-25 05:05] LABS: A/G RATIO 0.8 (0.7-1.9); ALBUMIN 2.9 G/DL (3.5-5.0); BUN (BLOOD UREA NITROGEN) 12 MG/DL (6-23); CALCIUM, SERUM 8.2 MG/DL (8.5-10.4); CHLORIDE, SERUM 104 MMOL/L (96-112); CO2 (CARBON DIOXIDE) 32 MMOL/L (24-34); CREATININE 0.97 MG/DL (0.55-1.02); GFR AFRICAN AMERICAN 74 ML/MIN (>=60); GFR NON AFRICAN AMERICAN 64 ML/MIN (>=60); GLOBULIN 3.5 G/DL (2.5-4.1); SGOT(AST) 42 U/L (5-40); SGPT(ALT) 31 U/L (5-65); SODIUM, SERUM 141 MMOL/L (135-148); TOTAL BILIRUBIN 0.2 MG/DL (0-1.2); TOTAL PROTEIN 6.4 G/DL (6.0-8.5)
[2016-06-25 05:05] LABS: LACTATE 0.8 MMOL/L (0.3-2.4)
[2016-06-25 05:06] LABS: ALKALINE PHOSPHATASE 171 U/L (45-117); GLUCOSE, SERUM 117 MG/DL (60-99)
[2016-06-25 06:17] LABS: ASCORBIC ACID (UR NOT ORDER) NEG (NEG); BILIRUBIN, URINE NEGATIVE (NEG); ER URINALYSIS TAT 0 Hrs 00 Mins; KETONE, URINE NEGATIVE (NEG); LEUKOCYTE ESTERASE(NOT OR LARGE (NEG); NITRITE (URINE) NEG (NEG); WBC (NOT ORDERED) (RFLEX) 29 (0-5)
[2016-06-25] MEDS ORDERED: ATV1 PO (07:41)
[2016-06-25] MEDS ORDERED: MULTIVIT/MIN PO (07:46)
[2016-06-25] MEDS ORDERED: REST15 PO (07:48)
[2016-06-25] MEDS ORDERED: FLUCON1 PO (07:49)
[2016-06-26 10:01] LABS: FOLATE 9.8 NG/ML (>5.2); FREE T4 0.77 NG/DL (0.76-1.46); ULTRASENSITIVE TSH 0.326 MCIU/ML (0.358-3.740)
[2016-06-28 06:23] LABS: BUN (BLOOD UREA NITROGEN) 12 MG/DL (6-23); C-REACTIVE PROTEIN 14.1 MG/L (<8.0); CALCIUM, SERUM 9.1 MG/DL (8.5-10.4); CHLORIDE, SERUM 99 MMOL/L (96-112); CO2 (CARBON DIOXIDE) 34 MMOL/L (24-34); CREATININE 0.95 MG/DL (0.55-1.02); GFR AFRICAN AMERICAN 76 ML/MIN (>=60); GFR NON AFRICAN AMERICAN 66 ML/MIN (>=60); GLUCOSE, SERUM 127 MG/DL (60-99); POTASSIUM, SERUM 4.3 MMOL/L (3.5-5.3); RHEUMATOID FACTOR QUANT < 10 IU/ML (0-15); SODIUM, SERUM 138 MMOL/L (135-148)
[2016-06-28 09:49] LABS: ANA PATTERN HOMOGENEOUS
[2016-06-28 22:14] LABS: THYROID PEROXIDASE AUTO AB 0.4 IU/mL (0.0-9.0)
[2016-06-28 22:18] LABS: THYROGLOBULIN AUTO ANTIBODY <0.9 IU/mL (0.0-4.0)
[2016-06-30 04:36] LABS: BASOPHILS 0.3 %; BASOPHILS ABSOLUTE 0.03 10/3/uL (0.0-0.16); EOSINOPHILS 2.8 %; EOSINOPHILS ABSOLUTE 0.27 10/3/uL (0.0-0.53); IMMATURE GRANULOCYTES 0.4 %; IMMATURE GRANULOCYTES ABSOLUTE 0.04 10/3/uL (0.0-0.11); LYMPHOCYTES 34.9 %; LYMPHOCYTES ABSOLUTE 3.35 10/3/uL (0.67-4.30); MEAN CORPUS HGB CONC 33.4 g/dL (32.0-36.0); MEAN CORPUSCULAR HEMOGLOB 29.3 pg (26.0-34.0); MEAN PLATELET VOLUME 8.8 fL (9.2-13.0); MONOCYTES 7.4 %; MONOCYTES ABSOLUTE 0.71 10/3/uL (0.21-1.20); NEUTROPHILS 54.2 %; NEUTROPHILS ABSOLUTE 5.21 10/3/uL (2.02-8.40); PLATELET COUNT 222 10/3/uL (150-400); RBC DISTRIBUTION WIDTH 15.2 % (12.0-16.0); WHITE BLOOD CELLS 9.6 10/3/uL (4.5-10.5)
[2016-06-30 04:39] LABS: HEMOGLOBIN 10.7 g/dL (12.0-16.0); MANUAL DIFF NO %; MEAN CORPUSCULAR VOLUME 87.7 fL (80-100); RED CELL COUNT 3.65 10/6/uL (4.0-5.6)
[2016-06-30 04:45] LABS: ASCORBIC ACID (UR NOT ORDER) NEG (NEG); BILIRUBIN, URINE NEGATIVE (NEG); KETONE, URINE NEGATIVE (NEG); LEUKOCYTE ESTERASE(NOT OR NEG (NEG); WBC (NOT ORDERED) (RFLEX) 2 (0-5)
[2016-06-30 04:52] LABS: CALCIUM, SERUM 9.1 MG/DL (8.5-10.4); CHLORIDE, SERUM 96 MMOL/L (96-112); CO2 (CARBON DIOXIDE) 30 MMOL/L (24-34); CREATININE 0.99 MG/DL (0.55-1.02); GFR AFRICAN AMERICAN 72 ML/MIN (>=60); GFR NON AFRICAN AMERICAN 62 ML/MIN (>=60); POTASSIUM, SERUM 4.1 MMOL/L (3.5-5.3); SODIUM, SERUM 134 MMOL/L (135-148)
[2016-06-30 04:53] LABS: BUN (BLOOD UREA NITROGEN) 23 MG/DL (6-23); GLUCOSE, SERUM 98 MG/DL (60-99)
[2016-07-01 05:24] LABS: CALCIUM, SERUM 8.4 MG/DL (8.5-10.4); CHLORIDE, SERUM 91 MMOL/L (96-112); CO2 (CARBON DIOXIDE) 27 MMOL/L (24-34); CREATININE 0.85 MG/DL (0.55-1.02); GFR AFRICAN AMERICAN 87 ML/MIN (>=60); GFR NON AFRICAN AMERICAN 75 ML/MIN (>=60); GLUCOSE, SERUM 83 MG/DL (60-99); POTASSIUM, SERUM 3.6 MMOL/L (3.5-5.3); SODIUM, SERUM 128 MMOL/L (135-148)
[2016-07-01 05:27] LABS: BUN (BLOOD UREA NITROGEN) 14 MG/DL (6-23)
[2016-07-01 17:56] LABS: BUN (BLOOD UREA NITROGEN) 14 MG/DL (6-23); CALCIUM, SERUM 8.2 MG/DL (8.5-10.4); CHLORIDE, SERUM 93 MMOL/L (96-112); CO2 (CARBON DIOXIDE) 25 MMOL/L (24-34); CREATININE 0.83 MG/DL (0.55-1.02); GFR AFRICAN AMERICAN 89 ML/MIN (>=60); GFR NON AFRICAN AMERICAN 77 ML/MIN (>=60); POTASSIUM, SERUM 3.4 MMOL/L (3.5-5.3); SODIUM, SERUM 129 MMOL/L (135-148)
[2016-07-01 17:58] LABS: GLUCOSE, SERUM 124 MG/DL (60-99)
[2016-07-01] MEDS ORDERED: CORTEF5 PO (19:50)
[2016-07-01] MEDS ORDERED: NORCO1 TA1 PO (19:51)
[2016-07-02 09:54] LABS: ANTI SS-A NEGATIVE (NEGATIVE); ANTI SS-B NEGATIVE (NEGATIVE)
== END 2016-07-01 20:30 | disposition home or self-care (01) | DRG 643 ==
LOC: ER 02:41 → 4SO 09:58
PROVIDERS: Internal Medicine; Internal Medicine Gastroenterology; Psychiatry & Neurology Neurology; Specialist
PROC: 0DJ08ZZ Inspection of Upper Intestinal Tract, Via Natural or Artificial Opening Endoscopic (ICD-10-PCS; principal; 2016-06-30 11:03)
DX: E27.40 Unspecified adrenocortical insufficiency (principal); G92 Toxic encephalopathy; N39.0 Urinary tract infection, site not specified; K50.90 Crohn's disease, unspecified, without complications; E87.1 Hypo-osmolality and hyponatremia; I95.1 Orthostatic hypotension; G89.29 Other chronic pain; Z66 Do not resuscitate; M79.7 Fibromyalgia; Z91.81 History of falling; R53.1 Weakness; H10.401 Unspecified chronic conjunctivitis, right eye; F31.9 Bipolar disorder, unspecified; Z79.899 Other long term (current) drug therapy; Z90.49 Acquired absence of other specified parts of digestive tract; Z88.2 Allergy status to sulfonamides; Z88.5 Allergy status to narcotic agent; Z88.6 Allergy status to analgesic agent; Z79.891 Long term (current) use of opiate analgesic; T40.695A Adverse effect of other narcotics, initial encounter; T43.595A Adverse effect of other antipsychotics and neuroleptics, initial encounter; T43.295A Adverse effect of other antidepressants, initial encounter; Y92.009 Unspecified place in unspecified non-institutional (private) residence as the place of occurrence of the external cause; D64.9 Anemia, unspecified; K59.00 Constipation, unspecified; M06.9 Rheumatoid arthritis, unspecified; F17.210 Nicotine dependence, cigarettes, uncomplicated; T45.1X5A Adverse effect of antineoplastic and immunosuppressive drugs, initial encounter; R47.1 Dysarthria and anarthria; T42.4X5A Adverse effect of benzodiazepines, initial encounter; K31.89 Other diseases of stomach and duodenum
CPT/HCPCS: 70450; 70553; 71010; 72156; 80048; 80053; 81001; 82024; 82140; 82164; 82533; 82607; 82746; 82962; 83036; 83605; 83690; 84439; 84443; 85025; 85610; 85652; 85730; 86039; 86140; 86141; 86235; 86235-59; 86376; 86431; 86800; 87040; 87086; 94640; 95819; 96361; 96374; 96375; 99285; A9270-GY; A9577; J0834; J2405